=== PATIENT | male | born 1990 | race African-American/Black ===

== ENCOUNTER 2016-12-22 08:40 | Emergency (ER) | payer MEDICARE, MEDICAID ==
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
[2016-12-22] MEDS ORDERED: LIDOCAINE 1% INJ-PF (10 MG/ML) 30 ML SDV INJ ONE (10:20)
--- NOTE | 2016-12-22 11:28 | RADIOLOGY REPORT (SQ) ---
EXAM DESCRIPTION: KNEE LEFT 2 VIEWS COMPLETED DATE/TIME: 12/22/2016 11:10 am REASON FOR STUDY: puncture COMPARISON: None. NUMBER OF VIEWS: Two views. TECHNIQUE: AP and lateral radiographic images acquired of the left knee. LIMITATIONS: None. FINDINGS: MINERALIZATION: Normal. BONES: No acute fracture or dislocation. There are what appear to be posttraumatic changes patella. JOINT: No effusion. SOFT TISSUES: No soft tissue swelling. No radio-opaque foreign body. OTHER: No other significant finding. IMPRESSION: No acute abnormality. Findings as described. TECHNICAL DOCUMENTATION: JOB ID: [id number] [employer]- All Rights Reserved
[2016-12-22 11:57] VITALS: BP 124/81
== END 2016-12-22 11:50 | disposition home or self-care (01) ==
LOC: ER 08:40
PROC: 0HQLXZZ Repair Left Lower Leg Skin, External Approach (ICD-10-PCS; principal; 2016-12-22)
DX: S81.012A Laceration without foreign body, left knee, initial encounter (principal); M25.562 Pain in left knee; W26.9XXA Contact with unspecified sharp object(s), initial encounter; F17.200 Nicotine dependence, unspecified, uncomplicated
CPT/HCPCS: 99283; 73560; 12001; J3490

== ENCOUNTER 2017-05-24 22:17 | Emergency (ER) | payer MEDICARE, MEDICAID ==
[2017-05-24 22:42] VITALS: BP 132/80
== END 2017-05-25 00:45 | disposition left against medical advice (07) ==
LOC: ER 22:17
DX: Z53.21 Procedure and treatment not carried out due to patient leaving prior to being seen by health care provider (principal)

== ENCOUNTER 2019-03-09 10:47 | Emergency (ER) | payer MEDICARE, MEDICAID ==
[2019-03-09 12:34] VITALS: BP 106/61
== END 2019-03-09 12:29 | disposition left against medical advice (07) ==
LOC: ER 10:47
DX: Z53.21 Procedure and treatment not carried out due to patient leaving prior to being seen by health care provider (principal)